=== PATIENT | male | born 1970 | race Caucasian/White ===

== ENCOUNTER 2017-11-19 22:15 | Emergency (ER) | payer SELFPAY | END 2017-11-19 23:17 | disposition home or self-care (01) | LOC: EDH 22:15 | DX: M79.641 Pain in right hand (principal); M79.642 Pain in left hand; M54.5 Low back pain; G89.29 Other chronic pain; E11.9 Type 2 diabetes mellitus without complications; E07.9 Disorder of thyroid, unspecified | CPT/HCPCS: 99281 ==

== ENCOUNTER 2019-12-30 10:16 | Emergency (ER) | payer SELFPAY ==
[2019-12-30] MEDS ORDERED: KETOROLAC TROMETHAMINE 30MG/ML ONE (11:04)
[2019-12-30] MEDS ORDERED: ONDANSETRON HCL 4 MG/2 ML VIAL ONE (11:04)
== END 2019-12-30 14:12 | disposition home or self-care (01) ==
LOC: EDH 10:16
DX: M54.5 Low back pain (principal); K75.9 Inflammatory liver disease, unspecified; E11.9 Type 2 diabetes mellitus without complications; Z72.0 Tobacco use
CPT/HCPCS: 72100; 96374; 96375; 99284; J1885; J2405

== ENCOUNTER 2020-01-28 10:16 | Emergency (ER) | payer SELFPAY ==
[2020-01-28] MEDS ORDERED: KETOROLAC TROMETHAMINE 60 MG/2 ML VIAL ONE (11:17)
[2020-01-28] MEDS ORDERED: ORPHENADRINE CITRATE 30 MG/ML ML ONE (11:17)
== END 2020-01-28 11:49 | disposition home or self-care (01) ==
LOC: EDH 10:16
DX: M54.5 Low back pain (principal); G89.29 Other chronic pain; E11.9 Type 2 diabetes mellitus without complications; E07.9 Disorder of thyroid, unspecified; Z79.899 Other long term (current) drug therapy
CPT/HCPCS: 96372 ×2; 99284; J1885; J2360

== ENCOUNTER 2020-02-08 15:50 | Emergency (ER) | payer SELFPAY ==
[2020-02-08] MEDS ORDERED: KETOROLAC TROMETHAMINE 30MG/ML ONE (16:03)
[2020-02-08] MEDS ORDERED: ORPHENADRINE CITRATE 30 MG/ML ML ONE (16:03)
[2020-02-08 16:26] LABS: APPEARANCE,URINE Clear (CLEAR); BILIRUBIN,URINE Negative (NEGATIVE); COLOR,URINE Yellow (YELLOW); GLUCOSE, URINE (UA) Negative (NEGATIVE); KETONES,URINE Negative (NEGATIVE); LEUKOCYTE ESTERASE ,URINE Negative (NEGATIVE); NITRATE,URINE Negative (NEGATIVE); OCCULT BLOOD,URINE Negative (NEGATIVE); PROTEIN,URINE Negative (NEGATIVE)
== END 2020-02-08 17:56 | disposition home or self-care (01) ==
LOC: EDH 15:50
DX: M54.5 Low back pain (principal)
CPT/HCPCS: 81003; 96372 ×2; 99284; J1885; J2360; 96374; 96375

== ENCOUNTER 2022-05-27 17:33 | Emergency (ER) | payer OTHER ==
[~2022-05-27] VITALS: Ht 165.1 cm; Wt 63.5 kg
[2022-05-27] MEDS ORDERED: MAG/ALUM/SIMETH 30 ML UDCUP PO ONE (18:00)
[2022-05-27] MEDS ORDERED: FAMOTIDINE 20MG VIAL IV ONE (18:00)
[2022-05-27] MEDS ORDERED: ACETAMINOPHEN 500 MG TABLET PO ONE (18:00)
[2022-05-27] MEDS ORDERED: LIDOCAINE HCL 2% VISCOUS 15 ML UDCUP PO ONE (18:00)
[2022-05-27] MEDS ORDERED: DICYCLOMINE HCL 10 MG/5 ML ML PO ONE (18:00)
[2022-05-27] MEDS ORDERED: ONDANSETRON 4MG INJ IVP ONE (18:00)
[2022-05-27 18:06] LABS: BASOPHILS % (AUTO) 0.3 % (0.0-5.0); EOSINOPHILS % (AUTO) 0.8 % (0.0-8.0); HEMATOCRIT 42.5 % (42-54); LYMPHOCYTES % (AUTO) 8.7 % (21.0-51.0); MEAN CORPUSCULAR HEMOGLOBIN 30.1 pg (27.0-33.0); MEAN CORPUSCULAR HGB CONC 35.3 g/dL (32.0-36.0); MEAN CORPUSCULAR VOLUME 85.2 fL (79-99); MONOCYTES % (AUTO) 4.5 % (3.0-13.0); NEUTROPHILS % (AUTO) 85.4 % (40.0-77.0); PLATELET COUNT (AUTO) 189 K/uL (130-400); RED BLOOD CELL COUNT(AUTO) 4.99 MIL/uL (4.50-6.20); RED CELL DISTRIBUTION WIDTH 12.1 % (11.0-15.5); WHITE BLOOD COUNT (AUTO) 7.2 K/uL (4.8-10.8)
[2022-05-27 18:30] LABS: ALBUMIN 3.6 g/dL (3.5-5.0); CREATININE 1.2 mg/dL (0.5-1.5); POTASSIUM 3.5 mmol/L (3.5-5.1); TOTAL PROTEIN, SERUM 6.6 g/dL (6.0-8.3)
[2022-05-27 19:08] LABS: APPEARANCE,URINE CLEAR (CLEAR); BILIRUBIN,URINE NEGATIVE (NEGATIVE); COLOR,URINE YELLOW (YELLOW); GLUCOSE, URINE (UA) NEGATIVE (NEGATIVE); KETONES,URINE NEGATIVE (NEGATIVE); LEUKOCYTE ESTERASE ,URINE NEGATIVE Leu/uL (NEGATIVE); NITRATE,URINE NEGATIVE (NEGATIVE); OCCULT BLOOD,URINE NEGATIVE (NEGATIVE); PROTEIN,URINE NEGATIVE (NEGATIVE); UROBILINOGEN,URINE 0.2 mg/dL (0.2-1.0)
[2022-05-27] MEDS ORDERED: OSEL75 PO (19:55)
[2022-05-27] MEDS ORDERED: ONDA4TAB10 PO (19:55)
[2022-05-27] MEDS ORDERED: DICY20TA2 PO (19:55)
[2022-05-27] MEDS ORDERED: OSELTAMIVIR PHOSPHATE 75 MG CAP PO SCH (20:00)
[2022-05-27] MEDS ORDERED: ONDANSETRON ODT 4MG TAB SL ONE (20:00)
[2022-05-27] MEDS ORDERED: ONDANSETRON ODT 4MG TAB ONE (20:02)
[2022-05-27] MEDS ORDERED: OSELTAMIVIR PHOSPHATE 75 MG CAP ONE (20:02)
[2022-05-27 20:05] VITALS: BP 109/72
== END 2022-05-27 20:14 | disposition home or self-care (01) ==
LOC: EDH 17:33
DX: J10.1 Influenza due to other identified influenza virus with other respiratory manifestations (principal); K52.9 Noninfective gastroenteritis and colitis, unspecified; Z20.822 Contact with and (suspected) exposure to COVID-19
CPT/HCPCS: 99284; 96374; 76705; 87635; 96375; 84484; 80053; 83690; 85025; 87804 ×2; 81003; 36415; C9803; J3490; J2405

== ENCOUNTER 2022-06-07 18:13 | Emergency (ER) | payer OTHER ==
[~2022-06-07] VITALS: Ht 165.1 cm; Wt 63.5 kg
[2022-06-07 18:13] VITALS: BP 103/67
[~2022-06-07 18:13] MED LIST: DICY20TA2 PO; ONDA4TAB10 PO; OSEL75 PO
[2022-06-07 18:37] LABS: BASOPHILS % (AUTO) 0.3 % (0.0-5.0); EOSINOPHILS % (AUTO) 0.8 % (0.0-8.0); HEMATOCRIT 39.6 % (42-54); LYMPHOCYTES % (AUTO) 13.7 % (21.0-51.0); MEAN CORPUSCULAR HEMOGLOBIN 30.3 pg (27.0-33.0); MEAN CORPUSCULAR HGB CONC 35.1 g/dL (32.0-36.0); MEAN CORPUSCULAR VOLUME 86.3 fL (79-99); MONOCYTES % (AUTO) 7.1 % (3.0-13.0); NEUTROPHILS % (AUTO) 77.8 % (40.0-77.0); PLATELET COUNT (AUTO) 226 K/uL (130-400); RED BLOOD CELL COUNT(AUTO) 4.59 MIL/uL (4.50-6.20); RED CELL DISTRIBUTION WIDTH 12.6 % (11.0-15.5); WHITE BLOOD COUNT (AUTO) 9.8 K/uL (4.8-10.8)
[2022-06-07 18:59] LABS: CREATININE 1.2 mg/dL (0.5-1.5); POTASSIUM 3.6 mmol/L (3.5-5.1)
[2022-06-07 19:04] LABS: ALBUMIN 3.7 g/dL (3.5-5.0); TOTAL PROTEIN, SERUM 6.8 g/dL (6.0-8.3)
[2022-06-07 19:13] LABS: APPEARANCE,URINE CLEAR (CLEAR); BILIRUBIN,URINE NEGATIVE (NEGATIVE); COLOR,URINE YELLOW (YELLOW); GLUCOSE, URINE (UA) NEGATIVE (NEGATIVE); KETONES,URINE NEGATIVE (NEGATIVE); LEUKOCYTE ESTERASE ,URINE NEGATIVE Leu/uL (NEGATIVE); NITRATE,URINE NEGATIVE (NEGATIVE); PROTEIN,URINE NEGATIVE (NEGATIVE); UROBILINOGEN,URINE 0.2 mg/dL (0.2-1.0)
[2022-06-07 19:24] LABS: MUCUS,URINE RARE LPF (None Seen); WBC,URINE 0-1 /HPF (0-1)
[2022-06-07] MEDS ORDERED: AZIT250T PO (19:52)
[2022-06-07] MEDS ORDERED: BENZ200C53 PO (19:52)
[2022-06-07] MEDS ORDERED: ACETAMINOPHEN 500 MG TABLET ONE (21:32)
[2022-06-07] MEDS ORDERED: ACETAMINOPHEN 500 MG TABLET PO ONE (22:00)
== END 2022-06-07 21:44 | disposition home or self-care (01) ==
LOC: EDH 18:13
DX: J04.0 Acute laryngitis (principal); J10.1 Influenza due to other identified influenza virus with other respiratory manifestations; J40 Bronchitis, not specified as acute or chronic; Z20.822 Contact with and (suspected) exposure to COVID-19; E03.9 Hypothyroidism, unspecified; Z79.899 Other long term (current) drug therapy
CPT/HCPCS: 99285; 71045; 87635; 84484; 80053; 85025; 87804 ×2; 81001; 36415; 93005; C9803

== ENCOUNTER 2023-01-30 09:52 | Emergency (ER) | payer OTHER ==
[~2023-01-30] VITALS: Ht 165.1 cm; Wt 65.8 kg
[~2023-01-30 09:52] MED LIST changes: +AZIT250T PO; +BENZ200C53 PO
[2023-01-30 10:28] LABS: BASOPHILS % (AUTO) 0.4 % (0.0-5.0); EOSINOPHILS % (AUTO) 2.6 % (0.0-8.0); HEMATOCRIT 43.4 % (42-54); LYMPHOCYTES % (AUTO) 28.6 % (21.0-51.0); MEAN CORPUSCULAR HEMOGLOBIN 30.9 pg (27.0-33.0); MEAN CORPUSCULAR VOLUME 88.2 fL (79-99); NEUTROPHILS % (AUTO) 59.8 % (40.0-77.0); PLATELET COUNT (AUTO) 160 K/uL (130-400); RED BLOOD CELL COUNT(AUTO) 4.92 MIL/uL (4.50-6.20); RED CELL DISTRIBUTION WIDTH 11.6 % (11.0-15.5); WHITE BLOOD COUNT (AUTO) 5.4 K/uL (4.8-10.8)
[2023-01-30 10:36] LABS: CREATININE 1.1 mg/dL (0.5-1.5); POTASSIUM 4.2 mmol/L (3.5-5.1)
[2023-01-30 10:40] LABS: ALBUMIN 4.1 g/dL (3.5-5.0); TOTAL PROTEIN, SERUM 6.9 g/dL (6.0-8.3)
[2023-01-30] MEDS ORDERED: DICYCLOMINE HCL 10 MG/5 ML ML PO ONE (11:00)
[2023-01-30] MEDS ORDERED: MAG/ALUM/SIMETH 30 ML UDCUP PO ONE (11:00)
[2023-01-30] MEDS ORDERED: PANTOPRAZOLE 40 MG/VIAL IVP ONE (11:00)
[2023-01-30] MEDS ORDERED: LIDOCAINE HCL 2% VISCOUS 15 ML UDCUP PO ONE (11:00)
[2023-01-30] MEDS ORDERED: ESOM20CA39 PO (11:46)
[2023-01-30 11:52] VITALS: BP 104/73
== END 2023-01-30 11:53 | disposition home or self-care (01) ==
LOC: EDH 09:52
DX: R10.13 Epigastric pain (principal); Z87.11 Personal history of peptic ulcer disease
CPT/HCPCS: 99284; 96374; 80053; 83690; 85025; 36415; C9113

== ENCOUNTER 2024-03-11 16:37 | Emergency (ER) | payer OTHER ==
[~2024-03-11] VITALS: Ht 162.6 cm; Wt 72.6 kg
[~2024-03-11 16:37] MED LIST changes: +ESOM20CA51 PO; +ONDA-243 PO; -ONDA4TAB10 PO
[2024-03-11] MEDS ORDERED: AZIT250T9 PO (18:44)
[2024-03-11] MEDS ORDERED: ALBUHFA IH (18:44)
[2024-03-11] MEDS ORDERED: IBUP-2077 PO (18:44)
[2024-03-11] MEDS ORDERED: BENZ-39 PO (18:44)
[2024-03-11 19:15] VITALS: BP 148/68; PULSE 92; RESP 18; O2SAT 98
== END 2024-03-11 19:20 | disposition home or self-care (01) ==
LOC: EDH 16:37
DX: U07.1 COVID-19 (principal); I10 Essential (primary) hypertension; Z79.899 Other long term (current) drug therapy; Z98.890 Other specified postprocedural states
CPT/HCPCS: 87426

== ENCOUNTER 2025-07-13 13:34 | Emergency (ER) | payer BC ==
[~2025-07-13] VITALS: Ht 165.1 cm; Wt 63.5 kg
[~2025-07-13 13:34] MED LIST changes: +ALBUHFA IH; +AZIT250T9 PO; +BENZ-39 PO; +IBUP-2077 PO
--- NOTE | 2025-07-13 14:46 | ERN ---
ED Note History of Present Illness Stated Complaint: LEFT HEEL PAIN X 8 MONTHS Chief Complaint: FOOT INJURY/PAIN Time Seen by MD: 13:36 Time Seen by Midlevel: 13:40 Dictation: 55-year-old male coming in with complaints of left heel pain for eight months. Denies any injury to the foot. Denies having to take any vdqb-[id number]-wwqnyqs medications today. Allergies: Coded Allergies: No Known Drug Allergies (Unverified Allergy, Unknown, 12/30/19) Home Meds Active Scripts Ibuprofen (Ibuprofen 800 mg Tab) 800 Mg Tab, 800 MG PO Q8H PRN for fever or pain, #30 TAB 0 Refills Prov:SHERRIE SINGHP 03/11/24 Benzonatate (Tessalon Perles) 100 Mg Cap, 100 MG PO TID for cough, #30 CAP 0 Refills Prov:SHERRIE SINGHP 03/11/24 Azithromycin (Azithromycin) 250 Mg Tablet, 250 MG PO AD, #6 TAB TAKE TWO TABLETS BY MOUTH DAY ONE, THEN ONE TABLET BY MOUTH DAYS TWO THROUGH FIVE. Prov:SHERRIE SINGHP 03/11/24 Albuterol Sulfate (Ventolin Hfa/Proventil Hfa/Proair Hfa) 90 Mcg Puff, 2 PUFF IH Q4H for WHEEZING, #1 INHALER 0 Refills Prov:SHERRIE SINGHP 03/11/24 Esomeprazole Magnesium (Esomeprazole Magnesium) 20 Mg Capsule.dr, 20 MG PO DAILY for 30 Days, #30 CAP Prov:NITISH DORMAN MD 01/30/23 Benzonatate (Benzonatate) 200 Mg Capsule, 200 MG PO TID for 10 Days, #30 CAP Prov:CECY RODRIGUEZ MD 06/07/22 Azithromycin (Zithromax) 250 Mg Tablet, 250 MG PO DAILY for 5 Days, #6 TAB 2 tabs day 1 then 1 tab day 2 through 5 Prov:CECY RODRIGUEZ MD 06/07/22 Oseltamivir Phosphate (Tamiflu) 75 Mg Cap, 75 MG PO BID for 5 Days, #10 CAP Prov:PATRICK GARIBAY 05/27/22 Dicyclomine HCl (Bentyl) 20 Mg Tab, 20 MG PO QID, #28 TAB Prov:PATRICK GARIBAY 05/27/22 Ondansetron (Ondansetron Odt) 4 Mg Tab.rapdis, 4 MG PO TID, #21 TAB Prov:PATRICK GARIBAY 05/27/22 Past Medical History Past Medical History: Hypothyroid, Hypotension, Liver Disease Surgical History: Unknown Surgical History Other: SHOULDER Family History: Negative Social History: Negative Review of System Dictation Constitutional: Negative for fever,chills, and weight loss Eyes: Negative for injury, pain,redness, and discharge ENT: Negative for injury,pain or swelling Cardiovascular: Negative for chest pain, palpitations, and edema Respiratory: Negative for shortness of breath, cough, and wheezing, Abdomen/GI: Negative for abdominal pain, nausea, vomiting, diarrhea, and constipation Back: Negative for injury and pain : Negative for injury, bleeding and discharge MS/Extremity: Negative for injury and deformity, heel pain Skin: Negative for rash, and discoloration Neuro: Negative for headache, weakness, numbness, tingling, and seizure Psych: Negative for suicide ideation, homicidal ideation, and hallucinations Review of Systems: was completed Initial Vital Sign VS Vital Signs Date Time Temp Pulse Resp B/P (MAP) Pulse Ox O2 Delivery O2 Flow Rate FiO2 07/13/25 13:36 97.9 66 16 140/65 100 Room Air 0 Physical Exam Dictation General: awake, alert, NAD Head/Face: Normocephalic, atraumatic Eyes: PERRL, EOMI, vision at baseline ENT: oral cavity clear, TMs clear, no signs of infection Neck: Trachea midline, supple, no nuchal rigidity Cardiovascular: RRR, normal S1/S2, No MRGs, no JVD Respiratory: CTAB, no respiratory distress, No rales or wheezes Abdomen: Soft, non-tender, non-distended, normal bowel sounds, no guarding or rebound. Skin: Warm, dry, normal turgor, no rash MS/Extremity: Pulses equal, no cyanosis, neurovascular intact, FROM Neuro: COAx4, GCS 15, strength 5/5, CN 2-12 intact, normal cerebellar exam, normal gait, Psych: Normal behavior, mood, and affect normal Results (Laboratory/Radiology) Labs Reviewed?: Yes ED Course ED Course Orders Procedure Category Date Status Time Foot Comp 3+Vws Lt RAD 07/13/25 Taken 13:42 Acetaminophen 500mg PHA 07/13/25 Complete Tab (Tylenol 500mg T 14:00 Ketorolac PHA 07/13/25 Complete Tromethamine 15mg/Ml 14:00 Current Medications Medications (Trade) Dose Ordered Sig/Katelyn Route PRN Reason Start Time Stop Time Status Last Admin Dose Admin Acetaminophen (TYLenol 500MG TAB) 1,000 mg ONCE ONCE PO 07/13/25 14:00 07/13/25 14:01 DC 07/13/25 14:41 Ketorolac Tromethamine (toRADol) 15 mg ONCE ONCE IM 07/13/25 14:00 07/13/25 14:01 DC 07/13/25 14:42 Vital Signs Date Time Temp Pulse Resp B/P (MAP) Pulse Ox O2 Delivery O2 Flow Rate FiO2 07/13/25 13:36 97.9 66 16 140/65 100 Room Air 0 Medical Decision Making MDM MDM: 55-year-old male coming in with complaints of left heel pain for eight months. Denies any injury to the foot. Denies having to take any jxto-pxy-fbawykh medications today. X-ray findings of the foot shows a heel spur. Patient will be discharged to follow up outpatient with the PCP. Educated to take [id number]-cuz-rvwlwyg Tylenol or Motrin for pain control. Differential diagnosis: Plantar fasciitis, heel spur Rationale: Tests considered and ordered secondary to shared decision making include: Previous outside records reviewed: Old ER visits. Risk of complication and/or morbidity or mortality of patient management: None Medications-Per medication reconciliation Need for hospitalization: Patient does not meet criteria for hospitalization. Need for emergency major/minor surgery: No There are no social concerns with this patient. Prescription drug management Prescriptions will include symptomatic care Patient's prior external medical records from other ER visits were reviewed by me as indicated. Prior testing and results from previous visits were reviewed. Prior tests were taken into account with medical decision making and resource utilization, independent historian/historians were used to obtain complete medical history. I independently interpreted the test that were performed, results were reviewed by me and considered findings on radiology if ordered. Medical management and examination interpretation discussions were had by me with other qualified healthcare professionals as indicated for the patient's care. DX & DISP Disposition: Discharge Departure Impression: Primary Impression: Heel spur Condition: Stable Additional Instructions: St does not show any broken bones or dislocations. X-ray shows a heel spur. F ollow up with your primary doctor for further management. Return to the hospital if you have any worsening symptoms. Referrals: SELF,REFERRAL (PCP) Time of Disposition: 14:45 I have reviewed the case, and I agree with, Diagnosis and Plan CARLYN ABRAHAM CNP Jul 13, 2025 14:46
[2025-07-13 14:54] VITALS: BP 131/63; PULSE 65; RESP 16; TEMP 97.9; O2SAT 100
--- NOTE | 2025-07-13 15:10 | HMCIMG ---
Technique: Foot exam 3 views. History: patient complains of foot pain Comparison :No prior. Findings: Anatomic alignment is maintained. There is no acute fracture or dislocation. The soft tissues are unremarkable. There are no erosive changes seen. A bony protuberance consistent with a calcaneal spur is noted along the inferior calcaneal surface. The bones of the hindfoot are intact. The midfoot is intact. The forefoot structures are normal. Impression: 1.Calcaneal spur. Consider MRI of the foot to exclude plantar fasciitis. 2. No acute bony changes of the foot is seen. /Vass
== END 2025-07-13 15:04 | disposition home or self-care (01) ==
LOC: EDH 13:34
DX: M77.32 Calcaneal spur, left foot (principal); E03.9 Hypothyroidism, unspecified
CPT/HCPCS: 99284; 73630; 96372; J1885